=== PATIENT | male | born 1965 | race Caucasian/White ===

== ENCOUNTER 2023-02-19 02:58 | Emergency (ER) | payer MEDICAID ==
[~2023-02-19] VITALS: Ht 182.9 cm; Wt 93.9 kg
[2023-02-19 03:05] VITALS: BP 105/55; PULSE 105; RESP 19; TEMP 98; O2SAT 97
[2023-02-19] MEDS ORDERED: BACITRACIN OINT 500 UNITS/GM PKT TP ONE (04:20)
[2023-02-19] MEDS ORDERED: KETOROLAC 30 MG/ML VIAL IM ONE (04:20)
[2023-02-19] MEDS ORDERED: MORPHINE SULFATE 4 MG/ML SYR IM ONE (04:20)
[2023-02-19] MEDS ORDERED: BACI-418 TP (05:02)
[2023-02-19] MEDS ORDERED: NAPR-54 PO (05:02)
== END 2023-02-19 05:37 | disposition home or self-care (01) ==
LOC: MED 02:58
DX: S46.811A Strain of other muscles, fascia and tendons at shoulder and upper arm level, right arm, initial encounter (principal); S80.02XA Contusion of left knee, initial encounter; V49.88XA Car occupant (driver) (passenger) injured in other specified transport accidents, initial encounter; Y93.89 Activity, other specified; Y92.89 Other specified places as the place of occurrence of the external cause; Y99.8 Other external cause status
CPT/HCPCS: 73030; 73562; 96372; 99284; J1885; J2270